=== PATIENT | male | born 1975 | race Caucasian/White ===

== ENCOUNTER 2024-03-18 03:57 | Emergency (ER) | payer OTHER, SELFPAY ==
[2024-03-18 04:06] VITALS: BP 138/102; PULSE 105; RESP 20; TEMP 36.8; O2SAT 95; BMI 29.0
--- NOTE | 2024-03-18 04:09 | ED.EAR ---
HPI - Ear Problem General Chief complaint: Ear Stated complaint: ear pain left side Time Seen by Provider: 03/18/24 03:59 Source: patient Mode of arrival: Ambulatory History of Present Illness HPI Narrative: 48-year-old male presents with 2-3 days of left ear pain and swelling. Patient states that it felt like something bit him, but nothing came out. Has muffled hearing on the left-hand side. Has been using Debrox and swimmer's ear without relief. Moved to [place] from [place] 1.5 years ago, no established PCP in the area. Related Data Home Medications Medication Instructions Recorded Confirmed No Known Home Medications 03/18/24 03/18/24 Allergies Allergy/AdvReac Type Severity Reaction Status Date / Time No Known Drug Allergies Allergy Verified 03/18/24 04:06 Patient History Social History Smoking Status: Never smoker Smoking Status: Never smoker Exam Initial Vital Signs Initial Vital Signs: Vital Signs Temperature 98.3 F 03/18/24 04:06 Pulse Rate 105 H 03/18/24 04:06 Respiratory Rate 20 03/18/24 04:06 Blood Pressure 138/102 H 03/18/24 04:06 Pulse Oximetry 95 03/18/24 04:06 Oxygen Delivery Method Room Air 03/18/24 04:06 Const: Awake, alert, no acute distress, nontoxic appearing HEENT: Right ear normal, left auricular tenderness with manipulation, no mastoid tenderness, external auditory canal edematous, TM poorly visualized but grossly normal, no drainage Skin: Warm, Dry, intact, no rashes Neuro: AO x3, CN II-XII grossly intact, moves all extremities Course Vital Signs Vital signs: Vital Signs - 8 hr 03/18/24 04:06 Temperature 98.3 F Pulse Rate 105 H Respiratory Rate 20 Blood Pressure 138/102 H Pulse Oximetry 95 Oxygen Delivery Method Room Air Medical Decision Making [facility] Narrative Medical decision making narrative: Acute otitis externa. TM poorly visualized due to swelling, but grossly appears intact without drainage from the canal. Your wick placed with Ciprodex drops instilled. Discharge Plan Departure Patient Disposition: Home Clinical Impression: Otitis externa Instructions: DI for Otitis Externa Activity Restrictions/Additional Instructions: Use the antibiotic drops as follows: Four drops in the left ear 2 times daily for 1 week. Leave the wick in your ear for 48 hours. I do not see any signs that your ear drum has ruptured at this time. Prescriptions: No Action No Known Home Medications Referrals: Jayshree Pittman MD [Primary Care Provider] - Stand Alone Forms: Patient Portal/API/Survey
[2024-03-18] MEDS: CIPROFLOXACIN/DEXAMETH OTIC SUSP 4 DROPS EAR-LEFT (04:29)
== END 2024-03-18 04:43 | disposition home or self-care (01) ==
PROVIDERS: Emergency Provider Emergency Medicine; PCP Family Medicine
DX: H60.92 Unspecified otitis externa, left ear (principal)
CPT/HCPCS: 99282